=== PATIENT | female | born 2000 | race Caucasian/White ===

== ENCOUNTER 2024-01-10 22:38 | Emergency (ER) | payer OTHER ==
[~2024-01-10] VITALS: Ht 157.5 cm; Wt 45.5 kg
[~2024-01-10 22:38] MED LIST: NOCURR
[2024-01-10 22:45] VITALS: TEMP 97.5
[2024-01-10 22:49] VITALS: BP 137/88; PULSE 86; RESP 18; O2SAT 100
[2024-01-10] MEDS: TraMADol HCL 50 MG TABLET PO ONE (23:03)
[2024-01-10] MEDS: PERTUSS(ACELL),DIPH,TET/PF 0.5 ML SYRINGE [ADULT] IM. ONE (23:03)
[2024-01-10] MEDS ORDERED: TRAM50TA5 PO (23:39)
== END 2024-01-10 23:51 | disposition home or self-care (01) ==
LOC: EMS 22:40
DX: S60.011A Contusion of right thumb without damage to nail, initial encounter (principal); W23.0XXA Caught, crushed, jammed, or pinched between moving objects, initial encounter; Y93.89 Activity, other specified; Y92.89 Other specified places as the place of occurrence of the external cause; Y99.8 Other external cause status
CPT/HCPCS: 90471; 90715; 99283